=== PATIENT | male | born 1995 | race Caucasian/White ===

== ENCOUNTER 2016-11-12 13:31 | Emergency (ER) | payer OTHER ==
--- NOTE | ~2016-11-12 | US115 ---
[facility] A Service of [facility] & [facility] RADIOLOGY TEXT RESULTS PATIENT: SANTIAGO CAR LOCATION: [facility] : 95 UNIT #: [id number] AGE: [address]: Walker Valdez MD SEX: M ORDER DR: [id number] [facility] [address] [place], [place] [address] [id number] P MR#: [id number] Acc #: [id number] NAME: SANTIAGO CAR : 1995 SEX: M STUDY DATE/TIME: 11/12/2016 12:17 UNIT: JIMMY ROOM: STUDY DESCRIPTION: US Scrotum and Contents Attending Physician: Walker Valdez M.D. Ordering Physician: Walker Valdez M.D. Primary Care Physician: Mary MejiaPLadariusREmi MEDICAL IMAGING REPORT This report is preliminary unless electronic signature is present EXAM Scrotal Doppler ultrasound, 11/12/16 INDICATIONS Left testicular pain since 09:30 a.m. this morning. No trauma. FINDINGS Asencio-scale, color flow, and spectral Doppler waveform analysis was performed of the scrotum and contents. No comparison. Both testicles are morphologically normal and show perfusion by Doppler. No intratesticular masses. The epididymides are normal. There is a small left varicocele. Trace bilateral hydroceles are present. IMPRESSION 1. The testicles and epididymides are normal. 2. Small left varicocele. 3. Trace bilateral hydroceles. Dictated by... Santiago So Jr., M.D. THIS IS AN ELECTRONICALLY VERIFIED REPORT Santiago So Jr., M.D. at 11/12/2016 4:48 PM JUAN/steven TD: 11/12/2016 13:30 JOB #: [id number] MEDICAL IMAGING REPORT Page 1 of 1 COPY
[2016-11-12 13:33] LABS: BASOPHIL# 0.1 X10e3 (0-0.3); BASOPHIL% 0.9 % (0-2.5); EOSINOPHIL# 0.1 X10e3 (0-0.7); LYMPHOCYTE# 1.7 X10e3 (1.0-3.5); LYMPHOCYTE% 21.3 % (17.0-45.0); MEAN CELL VOLUME 81.8 FL (83-96); MEAN CORPUSCULAR HEMOGLOBIN 27.2 PG (28-34); MEAN CORPUSCULAR HGB CONC 33.3 g/dL (30-36); MEAN PLATELET VOLUME 9.5 FL (6.5-11.5); MONOCYTE# 0.5 X10e3 (0-1.0); MONOCYTE% 6.5 % (3.0-12.0); NEUTROPHIL# 5.8 X10e3 (1.5-7.1); NEUTROPHIL% 70.3 % (40-75); PLATELET COUNT 189 X10e3 (140-420); RED CELL DISTRIBUTION WIDTH 14.3 % (11.0-15.5); WHITE BLOOD COUNT 8.2 X10e3 (4.0-10.5)
[2016-11-12 13:38] LABS: DIFF IND NO
[2016-11-12 13:59] LABS: BUN/CREATININE RATIO 11.25; CALCIUM SERUM 9.7 mg/dL (8.4-10.2); CREATININE SERUM 0.8 mg/dL (0.6-1.4); GLOM FILT RATE Estimated 127.7 mL/min (>60); POTASSIUM 4.2 mmol/L (3.5-5.1)
[2016-11-12 14:09] LABS: URINE SOURCE CLEAN CATCH
[2016-11-12 14:17] LABS: URINE APPEARANCE CLEAR; URINE BILIRUBIN NEG (NEG); URINE BLOOD NEG (NEG); URINE COLOR YELLOW; URINE GLUCOSE NEG (NEG); URINE KETONE NEG (NEG); URINE LEUKOCYTE ESTERASE NEG (NEG); URINE NITRATE NEG (NEG); URINE PH 6.5 (5-8); URINE PROTEIN NEG (NEG); URINE SPECIFIC GRAVITY 1.021 (1.003-1.035); URINE UROBILINOGEN 0.2 MG/DL (NEG)
[2016-11-12 14:32] LABS: CULTURE INDICATED? NO
[2016-11-14 09:13] LABS: CHLAMYDIA TRACH Not Detected (Not Detected); N GONOR Not Detected (Not Detected)
== END 2016-11-12 14:44 | disposition home or self-care (01) ==
LOC: CED 13:31
PROVIDERS: Emergency Medicine
DX: I86.1 Scrotal varices (principal); I10 Essential (primary) hypertension
CPT/HCPCS: 36415; 76870; 80048; 81003; 85025; 87491; 87591; 93976; 99284

== ENCOUNTER 2017-01-18 18:28 | Emergency (ER) | payer OTHER ==
--- NOTE | ~2017-01-18 | CR21 ---
[facility] A Service of [facility] & [facility] RADIOLOGY TEXT RESULTS PATIENT: SANTIAGO CAR LOCATION: [facility] : 95 UNIT #: [id number] AGE: [address]: MAYO BIRD APRN SEX: M ORDER DR: [id number] [facility] [address], [place] [address] [id number] E MR#: [id number] Acc #: [id number] NAME: SANTIAGO CAR : 1995 SEX: M STUDY DATE/TIME: 01/18/2017 20:09 UNIT: TX ROOM: STUDY DESCRIPTION: CR Ankle Min 3 Views Rt Attending Physician: Mayo Bird Aprn Ordering Physician: Ed Shadi Mccord M.D. Primary Care Physician: Kaylen Bullock A.P.R.N. MEDICAL IMAGING REPORT This report is preliminary unless electronic signature is present EXAM Right ankle three views, 01/18/2017 HISTORY Bruising, swelling and pain after fall 1.5 weeks ago. FINDINGS There are changes suggesting perhaps an old healed ankle injury but there is no evidence of fracture or other acute abnormality. The mortise is preserve. Dictated by... Roberto Stinson M.D. THIS IS AN ELECTRONICALLY VERIFIED REPORT Roberto Stinson M.D. at 01/21/2017 5:34 PM TEV/madeleine TD: 01/19/2017 04:20 JOB #: [id number] MEDICAL IMAGING REPORT Page 1 of 1 COPY
--- NOTE | ~2017-01-18 | CR127 ---
[facility] A Service of [facility] & [facility] RADIOLOGY TEXT RESULTS PATIENT: SANTIAGO CAR LOCATION: [facility] : 95 UNIT #: [id number] AGE: [address]: MAYO BIRD APRN SEX: M ORDER DR: [id number] [facility] [address] [place], [place] [address] [id number] E MR#: [id number] Acc #: [id number] NAME: SANTIAGO CAR : 1995 SEX: M STUDY DATE/TIME: 01/18/2017 20:09 UNIT: CFTX ROOM: STUDY DESCRIPTION: CR Foot Complete Min 3 View Rt Attending Physician: Mayo Bird Aprn Ordering Physician: Ed Shadi Mccord M.D. Primary Care Physician: Kaylen Bullock A.P.R.N. MEDICAL IMAGING REPORT This report is preliminary unless electronic signature is present EXAM Right foot, 3 views, 01/18/2017 COMPARISON None. HISTORY Bruising on ankle and calf after fall one and a half weeks ago. FINDINGS Negative, no fracture or dislocation. No acute abnormality. Dictated by... Roberto Stinson M.D. THIS IS AN ELECTRONICALLY VERIFIED REPORT Roberto Stinson M.D. at 01/21/2017 5:32 PM TEV/psc TD: 01/19/2017 04:10 JOB #: [id number] MEDICAL IMAGING REPORT Page 1 of 1 COPY
--- NOTE | ~2017-01-18 | US85 ---
[facility] A Service of [facility] & [facility] RADIOLOGY TEXT RESULTS PATIENT: SANTAIGO CAR LOCATION: [facility] : 95 UNIT #: [id number] AGE: [address]: MAYO BIRD APRN SEX: M ORDER DR: [id number] [facility] [address] [place], [place] [address] [id number] E MR#: [id number] Acc #: [id number] NAME: SANTIAGO CAR : 1995 SEX: M STUDY DATE/TIME: 01/18/2017 20:36 UNIT: CFTX ROOM: STUDY DESCRIPTION: [facility] Attending Physician: Mayo Bird Aprn Ordering Physician: Ed Doc Harjeet Mccord Primary Care Physician: Kaylen Bullock A.P.R.N. MEDICAL IMAGING REPORT This report is preliminary unless electronic signature is present EXAM Unilateral right lower extremity venous Doppler, 01/18/2017 HISTORY Right leg pain for one week after a fall. TECHNIQUE Venous ultrasound examination of the right lower extremity was performed using grayscale, spectral Doppler and color flow Doppler imaging. FINDINGS The examination is negative. There is no evidence of right lower extremity deep venous thrombus from the groin to the lower calf. Visualized greater saphenous vein is also patent. IMPRESSION Negative examination. No evidence of right lower extremity deep venous thrombosis. Dictated by... Roberto Stinson M.D. THIS IS AN ELECTRONICALLY VERIFIED REPORT Roberto Stinson M.D. at 01/21/2017 5:34 PM TEV/madeleine TD: 01/19/2017 05:21 JOB #: [id number] MEDICAL IMAGING REPORT Page 1 of 1 COPY
--- NOTE | ~2017-01-18 | CR253 ---
[facility] A Service of [facility] & [facility] RADIOLOGY TEXT RESULTS PATIENT: SANTIAGO CAR LOCATION: [facility] : 95 UNIT #: [id number] AGE: [address]: MAYO BIRD APRN SEX: M ORDER DR: [id number] [facility] [address] [place], [place] [address] [id number] E MR#: [id number] Acc #: [id number] NAME: SANTIAGO CAR : 1995 SEX: M STUDY DATE/TIME: 01/18/2017 20:11 UNIT: CFTX ROOM: STUDY DESCRIPTION: CR Tibia and Fibula 2 Views Rt Attending Physician: Mayo Bird Aprn Ordering Physician: Ed Shadi Mccord M.D. Primary Care Physician: Kaylen Bullock A.P.R.N. MEDICAL IMAGING REPORT This report is preliminary unless electronic signature is present EXAM Right tibia and fibula, 4 views, 01/18/2017 HISTORY Pain after fall one and a half weeks ago. FINDINGS Normal except for what appear to be changes in the ankle related to some remote prior injury. Dictated by... Roberto Stinson M.D. THIS IS AN ELECTRONICALLY VERIFIED REPORT Roberto Stinson M.D. at 01/21/2017 5:34 PM TEV/psc TD: 01/19/2017 04:12 JOB #: [id number] MEDICAL IMAGING REPORT Page 1 of 1 COPY
== END 2017-01-18 22:21 | disposition home or self-care (01) ==
LOC: CED 18:28 → CFTX 18:28
DX: S86.111A Strain of other muscle(s) and tendon(s) of posterior muscle group at lower leg level, right leg, initial encounter (principal); M79.604 Pain in right leg; I10 Essential (primary) hypertension; W19.XXXA Unspecified fall, initial encounter; Y92.9 Unspecified place or not applicable
CPT/HCPCS: 73590; 73610; 73630; 93971; 99284